=== PATIENT | male | born 1940 | race Caucasian/White ===

== ENCOUNTER → 2018-06-02 | Outpatient (CLI) | payer OTHER ==
[~2018-06-02] MED LIST: ALBU90OI6; GABA300; IBUP800 PO; OXYC10TA19 PO; RAMI2.5
== END | disposition home or self-care (01) ==
LOC: LAB EV 16:00 → LAB SHORT 16:00
DX: R30.0 Dysuria (principal)
CPT/HCPCS: 87086

== ENCOUNTER → 2019-04-26 | Outpatient (CLI) | payer OTHER | END | disposition home or self-care (01) | LOC: LAB EV 15:51 → LAB SHORT 15:51 | DX: N39.0 Urinary tract infection, site not specified (principal) | CPT/HCPCS: 87086 ==

== ENCOUNTER → 2020-02-07 | Outpatient (CLI) | payer OTHER | END | disposition home or self-care (01) | LOC: LAB SHORT 14:50 → LAB EV 14:50 | DX: R30.0 Dysuria (principal) | CPT/HCPCS: 87086 ==

== ENCOUNTER → 2020-04-03 | Outpatient (CLI) | payer OTHER | END | disposition home or self-care (01) | LOC: LAB EV 14:00 → LAB SHORT 14:00 | DX: R30.0 Dysuria (principal) | CPT/HCPCS: 87086 ==

== ENCOUNTER → 2020-05-16 | Outpatient (CLI) | payer OTHER | END | disposition home or self-care (01) | LOC: LAB EV 14:40 → LAB SHORT 14:40 | DX: R30.0 Dysuria (principal) | CPT/HCPCS: 87086 ==

== ENCOUNTER → 2020-08-07 | Outpatient (CLI) | payer OTHER ==
[~2020-08-07] MED LIST changes: +ALBU8HFA2 INH; +BUPROPION XL150 M1 PO; +FLUT1DIS5 INH; +FURO20 PO; +GABA800 PO; +IBUP600 PO; +TOUJEO SOL300 UNIT/2; +TRESIBA FL100 UNIT/2
== END | disposition home or self-care (01) ==
LOC: LAB SHORT 09:20 → LAB EV 09:20
DX: R35.0 Frequency of micturition (principal)
CPT/HCPCS: 87086

== ENCOUNTER → 2020-09-12 | Outpatient (CLI) | payer OTHER ==
[~2020-09-12] MED LIST changes: +ALBU90OI6 INH; +Narcan 0.40.4 MG/ML INH; +Oxycodone HCl20 M1 PO; +TOUJEO MAX300 UNIT/2
== END | disposition home or self-care (01) ==
LOC: LAB SHORT 13:40 → LAB EV 13:40
DX: N39.0 Urinary tract infection, site not specified (principal)
CPT/HCPCS: 87086

== ENCOUNTER 2020-09-13 10:16 | Day surgery (SDC) | payer OTHER ==
[~2020-09-13] VITALS: Ht 172.7 cm; Wt 96.1 kg
== END 2020-09-13 11:27 | disposition home or self-care (01) ==
LOC: ORSCSDS 10:16
PROVIDERS: Anesthesiology
PROC: 3E0R33Z Introduction of Anti-inflammatory into Spinal Canal, Percutaneous Approach (ICD-10-PCS; principal; 2020-09-13 11:15)
DX: M51.16 Intervertebral disc disorders with radiculopathy, lumbar region (principal); E11.9 Type 2 diabetes mellitus without complications; J44.9 Chronic obstructive pulmonary disease, unspecified; F17.210 Nicotine dependence, cigarettes, uncomplicated
CPT/HCPCS: 82947; J1040; J2001

== ENCOUNTER 2020-12-31 18:51 | Emergency (ER) | payer OTHER ==
[~2020-12-31] VITALS: Ht 170.2 cm; Wt 95.2 kg
== END 2020-12-31 21:20 | disposition left against medical advice (07) ==
LOC: ER 18:51
DX: E11.621 Type 2 diabetes mellitus with foot ulcer (principal); L97.419 Non-pressure chronic ulcer of right heel and midfoot with unspecified severity; Z53.21 Procedure and treatment not carried out due to patient leaving prior to being seen by health care provider
CPT/HCPCS: 99282

== ENCOUNTER 2021-01-08 00:28 | Day surgery (SDC) | payer OTHER | END 2021-01-08 23:59 | disposition home or self-care (01) | LOC: WOUND 00:28 | DX: E11.621 Type 2 diabetes mellitus with foot ulcer (principal); E11.622 Type 2 diabetes mellitus with other skin ulcer; E11.59 Type 2 diabetes mellitus with other circulatory complications; L89.322 Pressure ulcer of left buttock, stage 2; L89.312 Pressure ulcer of right buttock, stage 2 | CPT/HCPCS: A9270; G0463 ==

== ENCOUNTER 2021-01-17 22:56 | Emergency (ER) | payer OTHER ==
[~2021-01-17] VITALS: Ht 172.7 cm; Wt 66.2 kg
[2021-01-17] MEDS ORDERED: IBUP800 PO (23:31)
[2021-01-17 23:35] LABS: BASOPHILS ABSOLUTE AUTO 0.12 K/mm3 (0.00-0.23); BASOPHILS PERCENT AUTO 1 % (0-2); EOSINOPHILS ABSOLUTE AUTO 0.19 K/mm3 (0.00-0.68); EOSINOPHILS PERCENT AUTO 1 % (0-6); Hematocrit 31.9 % (37.0-53.0); Hemoglobin 10.3 g/dL (13.5-17.5); IMMATURE GRAN ABSOLUTE AUTO 0.77 K/mm3 (0.00-0.10); IMMATURE GRAN PERCENT AUTO 4 % (0-1); LYMPHOCYTES ABSOLUTE AUTO 2.55 K/mm3 (0.84-5.20); LYMPHOCYTES PERCENT AUTO 13 % (21-46); MONOCYTES ABSOLUTE AUTO 0.91 K/mm3 (0.16-1.47); MONOCYTES PERCENT AUTO 5 % (4-13); Mean Corpuscular HGB 30.8 pg (26.0-34.0); Mean Corpuscular HGB Conc 32.3 g/dL (31.5-36.5); Mean Corpuscular Volume 96 fL (80-100); Mean Platelet Volume 11.1 fL (9.1-12.4); NEUTROPHILS ABSOLUTE AUTO 14.93 K/mm3 (1.96-9.15); NEUTROPHILS PERCENT AUTO 77 % (41-73); Platelet Count 242 K/mm3 (150-400); RDW Coefficient Variation 13.3 % (11.7-14.2); RDW Standard Deviation 46.7 fL (35.1-46.3); Red Blood Cell Count 3.34 M/mm3 (4.30-5.90); White Blood Cell Count 19.47 K/mm3 (4.00-11.30)
[2021-01-17 23:50] LABS: Albumin, Blood 2.2 g/dL (3.4-5.0); Albumin/Globulin Ratio 0.8 (0.8-1.8); Bilirubin, Total 0.3 mg/dL (0.1-1.0); Bun/Creatinine Ratio 44.8 (12.0-20.0); Calcium, Blood 8.3 mg/dL (8.5-10.1); Creatinine, Blood 1.25 mg/dL (0.60-1.20); Globulin, Blood 2.8 g/dL (2.2-4.0); Potassium, Blood 4.6 mmol/L (3.5-5.5); Troponin I 0.056 ng/mL (0.000-0.040)
[2021-01-18 00:24] LABS: International Normalized Ratio 1.01; Prothrombin Time Results 10.8 Sec (9.7-11.5)
== END 2021-01-18 02:50 | disposition short-term general hospital (02) ==
LOC: ER 22:56
PROVIDERS: Emergency Medicine
DX: K92.2 Gastrointestinal hemorrhage, unspecified (principal); D50.0 Iron deficiency anemia secondary to blood loss (chronic); R79.89 Other specified abnormal findings of blood chemistry; I10 Essential (primary) hypertension; E78.5 Hyperlipidemia, unspecified; J44.9 Chronic obstructive pulmonary disease, unspecified; F17.210 Nicotine dependence, cigarettes, uncomplicated; Z88.1 Allergy status to other antibiotic agents; Z88.0 Allergy status to penicillin; Z88.6 Allergy status to analgesic agent; Z79.4 Long term (current) use of insulin
CPT/HCPCS: 36415; 71045; 80053; 84484; 85025; 85610; 85730; 86850; 86900; 86901; 93005; 93010; 96374; 99285-25; C9113

== ENCOUNTER → 2021-04-30 | Outpatient (CLI) | payer OTHER | END | disposition home or self-care (01) | LOC: LAB SHORT 13:52 → LAB 13:52 | DX: D11.0 Benign neoplasm of parotid gland (principal) | CPT/HCPCS: 88173 ==

== ENCOUNTER 2021-05-15 04:35 | Day surgery (SDC) | payer OTHER | END 2021-05-15 23:16 | disposition home or self-care (01) | LOC: WOUND 04:35 | DX: L97.212 Non-pressure chronic ulcer of right calf with fat layer exposed (principal); L97.222 Non-pressure chronic ulcer of left calf with fat layer exposed; L03.115 Cellulitis of right lower limb; L03.116 Cellulitis of left lower limb; E11.65 Type 2 diabetes mellitus with hyperglycemia; R60.0 Localized edema; I70.203 Unspecified atherosclerosis of native arteries of extremities, bilateral legs; R77.0 Abnormality of albumin; E11.40 Type 2 diabetes mellitus with diabetic neuropathy, unspecified; Z88.0 Allergy status to penicillin; Z88.1 Allergy status to other antibiotic agents; Z88.6 Allergy status to analgesic agent | CPT/HCPCS: A9270; G0463 ==

== ENCOUNTER → 2023-02-24 | Outpatient (CLI) | payer OTHER ==
[2023-02-24 12:30] LABS: BASOPHILS ABSOLUTE AUTO 0.12 K/mm3 (0.00-0.23); BASOPHILS PERCENT AUTO 2 % (0-2); EOSINOPHILS ABSOLUTE AUTO 0.35 K/mm3 (0.00-0.68); EOSINOPHILS PERCENT AUTO 4 % (0-6); Hematocrit 43.3 % (37.0-53.0); Hemoglobin 14.4 g/dL (13.5-17.5); IMMATURE GRAN ABSOLUTE AUTO 0.24 K/mm3 (0.00-0.10); IMMATURE GRAN PERCENT AUTO 3 % (0-1); LYMPHOCYTES ABSOLUTE AUTO 1.78 K/mm3 (0.84-5.20); LYMPHOCYTES PERCENT AUTO 22 % (21-46); MONOCYTES ABSOLUTE AUTO 1.06 K/mm3 (0.16-1.47); MONOCYTES PERCENT AUTO 13 % (4-13); Mean Corpuscular HGB 31.6 pg (26.0-34.0); Mean Corpuscular HGB Conc 33.3 g/dL (31.5-36.5); Mean Corpuscular Volume 95 fL (80-100); Mean Platelet Volume 11.3 fL (9.1-12.4); NEUTROPHILS ABSOLUTE AUTO 4.64 K/mm3 (1.96-9.15); NEUTROPHILS PERCENT AUTO 57 % (41-73); Platelet Count 218 K/mm3 (150-400); RDW Coefficient Variation 14.4 % (11.7-14.2); RDW Standard Deviation 49.8 fL (35.1-46.3); Red Blood Cell Count 4.55 M/mm3 (4.30-5.90); White Blood Cell Count 8.19 K/mm3 (4.00-11.30)
[2023-02-24 13:01] LABS: Albumin/Globulin Ratio 0.9 (0.8-1.8); Bilirubin, Total 0.3 mg/dL (0.1-1.0); Bun/Creatinine Ratio 15.1 (12.0-20.0); Calcium, Blood 8.5 mg/dL (8.5-10.1); Creatinine, Blood 1.06 mg/dL (0.60-1.20); Globulin, Blood 3.4 g/dL (2.2-4.0); Potassium, Blood 4.3 mmol/L (3.5-5.5); Total Protein, Blood 6.4 g/dL (6.4-8.2)
== END | disposition home or self-care (01) ==
LOC: LAB SHORT 11:05 → LAB HH 11:05
PROVIDERS: Nurse Practitioner Family
DX: E11.42 Type 2 diabetes mellitus with diabetic polyneuropathy (principal); E11.51 Type 2 diabetes mellitus with diabetic peripheral angiopathy without gangrene; E11.621 Type 2 diabetes mellitus with foot ulcer; L97.811 Non-pressure chronic ulcer of other part of right lower leg limited to breakdown of skin; I87.2 Venous insufficiency (chronic) (peripheral)
CPT/HCPCS: 80053; 83036; 85025

== ENCOUNTER 2024-03-25 00:12 | Emergency (ER) | payer OTHER ==
[~2024-03-25] VITALS: Ht 167.6 cm; Wt 95.2 kg
[2024-03-25] MEDS ORDERED: CefTRIAXone Sodium 1,000 MG in NS 50 ML IV ONE (03:55)
[2024-03-25 04:33] LABS: BASOPHILS ABSOLUTE AUTO 0.09 K/mm3 (0.00-0.23); BASOPHILS PERCENT AUTO 1 % (0-2); EOSINOPHILS ABSOLUTE AUTO 0.35 K/mm3 (0.00-0.68); EOSINOPHILS PERCENT AUTO 3 % (0-6); Hematocrit 42.9 % (37.0-53.0); Hemoglobin 14.1 g/dL (13.5-17.5); IMMATURE GRAN ABSOLUTE AUTO 0.11 K/mm3 (0.00-0.10); IMMATURE GRAN PERCENT AUTO 1 % (0-1); LYMPHOCYTES ABSOLUTE AUTO 1.71 K/mm3 (0.84-5.20); LYMPHOCYTES PERCENT AUTO 15 % (21-46); MONOCYTES ABSOLUTE AUTO 1.58 K/mm3 (0.16-1.47); MONOCYTES PERCENT AUTO 14 % (4-13); Mean Corpuscular HGB 32.6 pg (26.0-34.0); Mean Corpuscular HGB Conc 32.9 g/dL (31.5-36.5); Mean Corpuscular Volume 99 fL (80-100); Mean Platelet Volume 10.3 fL (9.1-12.4); NEUTROPHILS ABSOLUTE AUTO 7.89 K/mm3 (1.96-9.15); NEUTROPHILS PERCENT AUTO 67 % (41-73); Platelet Count 257 K/mm3 (150-400); RDW Coefficient Variation 13.6 % (11.7-14.2); RDW Standard Deviation 49.4 fL (35.1-46.3); Red Blood Cell Count 4.32 M/mm3 (4.30-5.90); White Blood Cell Count 11.73 K/mm3 (4.00-11.30)
[2024-03-25 04:54] LABS: Albumin, Blood 3.3 g/dL (3.4-5.0); Bilirubin, Total 0.4 mg/dL (0.1-1.0); Bun/Creatinine Ratio 23.8 (12.0-20.0); Calcium, Blood 9.3 mg/dL (8.5-10.1); Creatinine, Blood 0.93 mg/dL (0.60-1.20); Globulin, Blood 3.4 g/dL (2.2-4.0); Potassium, Blood 4.4 mmol/L (3.5-5.5); Total Protein, Blood 6.7 g/dL (6.4-8.2)
[2024-03-25] MEDS ORDERED: CEPH500 PO (04:59)
[2024-03-25 05:11] VITALS: BP 154/62
== END 2024-03-25 05:13 | disposition home or self-care (01) ==
LOC: ER 00:12
PROVIDERS: Emergency Medicine
DX: L03.115 Cellulitis of right lower limb (principal); I89.0 Lymphedema, not elsewhere classified; Z68.33 Body mass index [BMI] 33.0-33.9, adult; Z88.6 Allergy status to analgesic agent; Z88.1 Allergy status to other antibiotic agents; Z88.8 Allergy status to other drugs, medicaments and biological substances; Z88.0 Allergy status to penicillin; Z79.899 Other long term (current) drug therapy; Z79.4 Long term (current) use of insulin; E11.9 Type 2 diabetes mellitus without complications; I10 Essential (primary) hypertension; E78.5 Hyperlipidemia, unspecified; J44.9 Chronic obstructive pulmonary disease, unspecified; F17.210 Nicotine dependence, cigarettes, uncomplicated
CPT/HCPCS: 36415; 73590; 80053; 83605; 85025; 96365; 99283-25; J0696

== ENCOUNTER 2024-03-26 18:18 | Inpatient (IN) | payer OTHER ==
[~2024-03-26] VITALS: Ht 170.2 cm; Wt 98.6 kg
[~2024-03-26 18:18] MED LIST changes: +CEPH500 PO
[2024-03-26] MEDS ORDERED: Ondansetron HCl 2 MG / ML 2ML Vial IV PRN (19:55)
[2024-03-26] MEDS ORDERED: HYDROmorphone HCl/Pf 1MG SYR IV PRN ×2 (19:55→22:20)
[2024-03-26] MEDS ORDERED: Ipratropium/Albuterol SulF 2.5-0.5MG/3 ML Amp INH ONE (19:55)
[2024-03-26 20:36] LABS: Albumin, Blood 3.3 g/dL (3.4-5.0); Albumin/Globulin Ratio 0.9 (0.8-1.8); Bilirubin, Total 0.9 mg/dL (0.1-1.0); Bun/Creatinine Ratio 25.6 (12.0-20.0); Calcium, Blood 9.1 mg/dL (8.5-10.1); Creatinine, Blood 1.25 mg/dL (0.60-1.20); Globulin, Blood 3.6 g/dL (2.2-4.0); Potassium, Blood 4.9 mmol/L (3.5-5.5); Total Protein, Blood 6.9 g/dL (6.4-8.2)
[2024-03-26 20:53] LABS: BASOPHILS ABSOLUTE AUTO 0.11 K/mm3 (0.00-0.23); BASOPHILS PERCENT AUTO 1 % (0-2); EOSINOPHILS ABSOLUTE AUTO 0.13 K/mm3 (0.00-0.68); EOSINOPHILS PERCENT AUTO 1 % (0-6); Hematocrit 42.6 % (37.0-53.0); Hemoglobin 14.2 g/dL (13.5-17.5); IMMATURE GRAN ABSOLUTE AUTO 0.13 K/mm3 (0.00-0.10); IMMATURE GRAN PERCENT AUTO 1 % (0-1); LYMPHOCYTES ABSOLUTE AUTO 1.05 K/mm3 (0.84-5.20); LYMPHOCYTES PERCENT AUTO 8 % (21-46); MONOCYTES ABSOLUTE AUTO 1.55 K/mm3 (0.16-1.47); MONOCYTES PERCENT AUTO 11 % (4-13); Mean Corpuscular HGB 32.8 pg (26.0-34.0); Mean Corpuscular HGB Conc 33.3 g/dL (31.5-36.5); Mean Corpuscular Volume 98 fL (80-100); Mean Platelet Volume 10.7 fL (9.1-12.4); NEUTROPHILS ABSOLUTE AUTO 10.89 K/mm3 (1.96-9.15); NEUTROPHILS PERCENT AUTO 79 % (41-73); Platelet Count 232 K/mm3 (150-400); RDW Coefficient Variation 13.8 % (11.7-14.2); Red Blood Cell Count 4.33 M/mm3 (4.30-5.90); White Blood Cell Count 13.86 K/mm3 (4.00-11.30)
[2024-03-26 22:13] LABS: Source, Urine Foley catheter
[2024-03-26] MEDS ORDERED: Ondansetron 4 MG TAB PO PRN (22:20)
[2024-03-26] MEDS ORDERED: OxyCODONE HCL 5 MG TAB PO PRN (22:20)
[2024-03-26] MEDS ORDERED: Naloxone HCl 0.4MG / ML 1ML Vial IV PRN (22:20)
[2024-03-26] MEDS ORDERED: Acetaminophen 325 MG TABLET PO PRN (22:20)
[2024-03-26 22:26] LABS: Bilirubin, Urine Neg (Neg); Blood, Urine 4+ (Neg); Glucose Qualitative, Urine Neg (Neg); Ketones, Urine 1+ (Neg); Leukocyte Esterase, Urine Neg (Neg); Nitrite, Urine Neg (Neg); Protein, Urine 1+ (Neg); Urobilinogen, Urine NORM (Normal)
[2024-03-26 22:42] LABS: Appearance, Urine Hazy (Clear); Color, Urine Yellow (P-Yellow)
[2024-03-26 22:43] LABS: Bacteria Few /hpf; Squamous Epithelial Cells Few /hpf (Few); White Blood Cells, Urine 0-2 /hpf (0-5)
[2024-03-26] MEDS ORDERED: Mometasone/Formoterol MDI 200/5 mcg 13 GM INH SCH (22:45)
[2024-03-26 22:51] LABS: Influenza A, PCR NEGATIVE (NEGATIVE); Influenza B, PCR NEGATIVE (NEGATIVE); Resp Syncytial Virus, PCR NEGATIVE (NEGATIVE); SARS-Cov-2 (COVID-19) PCR, MMC NEGATIVE (NEGATIVE)
[2024-03-26] MEDS ORDERED: Lactated Ringer's 1,000 ML IV SCH (23:00)
[2024-03-26 23:31] VITALS: BP 153/57
--- NOTE | 2024-03-26 23:37 | NUR ---
ADMIT PT ARRIVED TO 212 @2315, 4P SLIDE TRANSFER TO BED. ADMITTED FOR L HIP FX. ORIENTED TO & CALL LIGHT.
[2024-03-27] MEDS ORDERED: Insulin Regular 100 UNIT/ML 10ML Vial SC SCH
[2024-03-27] MEDS ORDERED: CeFAZolin Sodium 1,000 MG in NS 50 ML IV SCH (00:16)
[2024-03-27] MEDS ORDERED: Albuterol 2.5 MG/3 ML VIAL INH PRN (00:35)
[2024-03-27] MEDS ORDERED: Ipratropium/Albuterol SulF 2.5-0.5MG/3 ML Amp INH SCH (00:35)
[2024-03-27 04:38] VITALS: BP 149/53
[2024-03-27 04:49] LABS: BASOPHILS ABSOLUTE AUTO 0.08 K/mm3 (0.00-0.23); BASOPHILS PERCENT AUTO 1 % (0-2); EOSINOPHILS ABSOLUTE AUTO 0.17 K/mm3 (0.00-0.68); EOSINOPHILS PERCENT AUTO 1 % (0-6); Hematocrit 40.8 % (37.0-53.0); Hemoglobin 13.3 g/dL (13.5-17.5); IMMATURE GRAN ABSOLUTE AUTO 0.12 K/mm3 (0.00-0.10); IMMATURE GRAN PERCENT AUTO 1 % (0-1); LYMPHOCYTES ABSOLUTE AUTO 1.17 K/mm3 (0.84-5.20); LYMPHOCYTES PERCENT AUTO 10 % (21-46); MONOCYTES ABSOLUTE AUTO 1.82 K/mm3 (0.16-1.47); MONOCYTES PERCENT AUTO 15 % (4-13); Mean Corpuscular HGB 32.5 pg (26.0-34.0); Mean Corpuscular HGB Conc 32.6 g/dL (31.5-36.5); Mean Corpuscular Volume 100 fL (80-100); Mean Platelet Volume 10.1 fL (9.1-12.4); NEUTROPHILS ABSOLUTE AUTO 8.93 K/mm3 (1.96-9.15); NEUTROPHILS PERCENT AUTO 73 % (41-73); Platelet Count 211 K/mm3 (150-400); RDW Coefficient Variation 13.8 % (11.7-14.2); Red Blood Cell Count 4.09 M/mm3 (4.30-5.90); White Blood Cell Count 12.29 K/mm3 (4.00-11.30)
[2024-03-27 05:17] LABS: Albumin, Blood 2.9 g/dL (3.4-5.0); Albumin/Globulin Ratio 0.9 (0.8-1.8); Bilirubin, Total 0.6 mg/dL (0.1-1.0); Bun/Creatinine Ratio 25.2 (12.0-20.0); Calcium, Blood 8.9 mg/dL (8.5-10.1); Creatinine, Blood 1.11 mg/dL (0.60-1.20); Globulin, Blood 3.4 g/dL (2.2-4.0); Magnesium, Blood 2.1 mg/dL (1.6-2.4); Potassium, Blood 4.3 mmol/L (3.5-5.5); Total Protein, Blood 6.3 g/dL (6.4-8.2)
--- NOTE | 2024-03-27 05:48 | NUR ---
SHIFT SUMMARY AOX2-SELF, FAMILY, PLACE. UNAWARE DATE, MONTH, PRESIDENT OR WHY HE'S IN HOSPITAL. FORGETFUL & CONFUSED. DAUGHTERS @BEDSIDE DURING ASSESSMENT & HELP W/QUESTIONS. PT DENIES ANY PAIN IN L HIP THIS AM, STATES MOST HIS PAIN IS IN RLE. R DESIR IS RED, HOT TO TOUCH, +1 EDEMA, SM NICKEL SIZE OPEN SORE NOTED. DAUGHTERS REPORT PT HAS BEEN DX PREVIOUSLY W/CELLULITIS & WAS TAKING PO ABX @HOME, PT RECIEVED IV ABX HERE & MEDICATED 1X W/0.5MG IV DILAUDID FOR 10/10 BURNING PAIN IN RLE. HAS BEEN NPO SINCE 0030 FOR POSSIBLE SURGERY TODAY, ATE SNACK PREVIOUS TO THAT SINCE CBG @84 & PT WOULD BE NPO. ORTHO CONSULT CALLED TO ANSWERING SERVICE. SPO2 @92% ON 2L 02, STATES HE HAS O2 @HOME HOWEVER WEARS IT INTERMITTENTLY. REST OF VS STABLE. HAS OCC MOIST PRODUCTIVE COUGH. BED ALARM & CALL LIGHT IN PLACE. WILL MONITOR.
--- NOTE | 2024-03-27 06:06 | NUR ---
COMMUNICATION *LATE ENTRY* DAUGHTERS INFORM THIS NURSE PT USED TO HAVE "PREVIOUS ISSUE" W/OXY & THEY HELPED "NIP THAT IN THE BUTT" & WOULD LIKE PT TO AVOID OR STAY AWAY FROM OXY, INFORMED THEM I WOULD PASS INFO ON. DAUGHTERS ALSO STATE PT DOESNT TAKE MANY OF HIS USUAL PERSCRIBED MEDICATION, DOESNT CHECK BLOOD SUGAR & EATS/DRINKS WHATEVER HE FEELS LIKE.
[2024-03-27 07:13] VITALS: BP 138/62
[2024-03-27] MEDS ORDERED: Furosemide 20 MG Tab PO SCH (09:00)
[2024-03-27] MEDS ORDERED: Docusate Sodium 100 MG Cap PO SCH (09:00)
[2024-03-27] MEDS ORDERED: Gabapentin 400 MG Cap PO SCH ×2 (09:00)
[2024-03-27] MEDS ORDERED: Polyethylene Glycol 3350 17 gm PO PRN (09:50)
[2024-03-27] MEDS ORDERED: Furosemide 10 MG/ML 4ML Vial IV SCH (10:00)
[2024-03-27] MEDS ORDERED: Cholecalciferol 1000 Unit Tablet (=25MCG) PO SCH (10:00)
[2024-03-27] MEDS ORDERED: Insulin Human Lispro 100 Units/ML 3ML Syringe SC SCH (11:30)
[2024-03-27 15:43] VITALS: BP 91/75
[2024-03-27 15:45] VITALS: BP 131/49
--- NOTE | 2024-03-27 17:26 | NUR ---
SHIFT SUMMARY PT RESTED INTERMITTENTLY T/O DAY. AAOX3. CONFUSED TO TIME/PLACE INTERMITTENTLY. DISCOMFORT DECREASED WITH 0.5MG IV DILAUDID PER ORDERS, DENIES N/V. TOLERATED DIET, ADA, AC+HS WITH NO INSULIN COVERAGE. LLE SHORTENED MILDLY EXTERNALLY ROTATED, DENIES N/T BLE, MOVES TOES WELL, PPP. IV ABX PER ORDERS. SURGERY PLANED FOR 0900 TOMORROW MORNING, NPO AFTER MIDNIGHT. FAMILY AT BEDSIDE T/O SHIFT, LOVING + ATTENTIVE. PT CURRENTLY SITTING UP IN BED TALKING WITH FAMILY, CALL LIGHT IN REACH.
[2024-03-27 20:10] VITALS: BP 149/63
[2024-03-27] MEDS ORDERED: Docusate Sodium/Senna 1 Tab PO SCH (21:00)
[2024-03-28 04:13] VITALS: BP 137/58
[2024-03-28 05:10] LABS: Hematocrit 38.1 % (37.0-53.0); Hemoglobin 12.3 g/dL (13.5-17.5); Mean Corpuscular HGB 32.1 pg (26.0-34.0); Mean Corpuscular HGB Conc 32.3 g/dL (31.5-36.5); Mean Corpuscular Volume 100 fL (80-100); Mean Platelet Volume 10.1 fL (9.1-12.4); Platelet Count 188 K/mm3 (150-400); RDW Coefficient Variation 13.8 % (11.7-14.2); RDW Standard Deviation 50.5 fL (35.1-46.3); Red Blood Cell Count 3.83 M/mm3 (4.30-5.90); White Blood Cell Count 10.93 K/mm3 (4.00-11.30)
--- NOTE | 2024-03-28 05:41 | NUR ---
SHIFT SUMMARY VSS. PT SLEPT WELL T/O THE NIGHT. MEDICATED FOR PAIN ONCE W/ IV PAIN MEDICATION. BLE REMAIN RED AND IRRITATED, RLE W/ OPEN CELLULITIS. BLE ELEVATED ON PILLOWS. COATES REMAINS IN PLACE, DRAINING YELLOW URINE. IV FLUIDS INFUSING. PT HAS BEEN NPO SINCE 0000 FOR SURGERY TODAY. OTHERWISE, NO ACUTE EVENTS NOTED.
[2024-03-28 05:43] LABS: Albumin, Blood 2.4 g/dL (3.4-5.0); Anion Gap 8 mmol/L (3-11); Blood Urea Nitrogen 32 mg/dL (8-24); Bun/Creatinine Ratio 28.6 (12.0-20.0); CO2, Blood 28 mmol/L (21-32); Calcium, Blood 8.6 mg/dL (8.5-10.1); Chloride, Blood 108 mmol/L (98-108); Creatinine, Blood 1.12 mg/dL (0.60-1.20); Glomerular Filtration Rate 66 (60-); Glucose, Blood 94 mg/dL (70-99); Magnesium, Blood 1.9 mg/dL (1.6-2.4); Phosphorus, Blood 3.3 mg/dL (2.5-4.9); Potassium, Blood 4.2 mmol/L (3.5-5.5); Sodium, Blood 140 mmol/L (136-145)
[2024-03-28 07:19] VITALS: BP 160/66
--- NOTE | 2024-03-28 15:23 | NUR ---
CALLED DR. BARKSDALE ABOUT ORDERS FOR TELLE. PT IS ON CONTINUOUS PULSE OX FOR PAIN MANAGEMENT. ASSESSED RADIAL PULSE, NOTICED IRREGULARITY. PT DENIES CHEST PAIN OR DISCOMFORT.
[2024-03-28 15:49] VITALS: BP 162/68
[2024-03-28] MEDS ORDERED: NS 250 ML IV PRN (16:35)
--- NOTE | 2024-03-28 18:09 | NUR ---
SHIFT SUMMARY HAS L HIP FX. PT IS ALERT X2-3. ORIENTATED TO SELF AND ANSWERS QUESTIONS APPROPRIATELY. PT HAS LIMITATIONS OF REMEMBERING HOW FALL OCCURED. PT VSS. Q2 TURNED PT. PT REPORTS PAIN IN BACK, L HIP AND R CALF. R CALF IS HOT TO TOUCH. MINIMAL PERLULENT DRAINAGE ON R CALF ON SHIFT. PAIN MANAGED PER EMAR, AND REPORTS RELIEF. PT RECIEVED ULTRASOUND TO RULE OUT DVT. PT IS ON 3L NC AND SOB. PLACED ON TELLE, SUSTAINED BIGEMINY SINCE PLACEMENT, DENIES CHEST PAIN. PT HAS COATES AND HAVING ADEQUATE OUTPUT. FAMILY AT BEDSIDE THROUGHOUT DAY. PLAN IS FOR PT TO HAVE SURGERY TOMORROW AND NPO AT MIDNIGHT. CALL LIGHT IN REACH.
[2024-03-28 19:36] VITALS: BP 164/40
[2024-03-29] VITALS (45 sets, daily range): BP systolic 84–148; BP diastolic 45–91
[2024-03-29] MEDS ORDERED: Insulin Human Lispro 100 Units/ML 3ML Syringe SC SCH
[2024-03-29 04:08] LABS: Hematocrit 38.9 % (37.0-53.0); Hemoglobin 12.5 g/dL (13.5-17.5); Mean Corpuscular HGB 32.1 pg (26.0-34.0); Mean Corpuscular HGB Conc 32.1 g/dL (31.5-36.5); Mean Corpuscular Volume 100 fL (80-100); Mean Platelet Volume 9.9 fL (9.1-12.4); Platelet Count 198 K/mm3 (150-400); RDW Coefficient Variation 13.8 % (11.7-14.2); RDW Standard Deviation 50.3 fL (35.1-46.3); White Blood Cell Count 11.64 K/mm3 (4.00-11.30)
[2024-03-29 04:31] LABS: Albumin, Blood 2.4 g/dL (3.4-5.0); Anion Gap 10 mmol/L (3-11); Blood Urea Nitrogen 35 mg/dL (8-24); Bun/Creatinine Ratio 31.5 (12.0-20.0); CO2, Blood 27 mmol/L (21-32); Calcium, Blood 8.7 mg/dL (8.5-10.1); Chloride, Blood 105 mmol/L (98-108); Creatinine, Blood 1.11 mg/dL (0.60-1.20); Glomerular Filtration Rate 66 (60-); Glucose, Blood 109 mg/dL (70-99); Phosphorus, Blood 3.3 mg/dL (2.5-4.9); Potassium, Blood 4.2 mmol/L (3.5-5.5); Sodium, Blood 138 mmol/L (136-145)
--- NOTE | 2024-03-29 06:44 | NUR ---
PT VSS T/O NIGHT. SATS >90% ON 3L O2 NC. LUNGS REMAIN DIM, WHEEZY AT TIMES, PT DENIED SOB. HR SINUS LOW 100'S W/PVC PER TELE MONITOR; PT DENIED CP/PRESSURE. L HIP PAIN MGD W/TYLENOL AND REPOSTIONING, RLE PAIN MGD W/ICE AND ELEVATION W/REP RELIEF. COATES PATANT DRNG DARK YELLOW URINE. PT NPO POST MIDNIGHT FOR PLAN FOR SURGERY TODAY. PT PLEASANTLY CONFUSED, BED ALARM ON FOR SAFETY.
[2024-03-29] MEDS ORDERED: FentaNYL Citrate 50 MCG/ML 2 ML Injection ONE ×3 (13:51→16:33)
[2024-03-29] MEDS ORDERED: Lactated Ringer's 1,000 ML IV SCH (14:05)
[2024-03-29] MEDS ORDERED: Ipratropium/Albuterol SulF 2.5-0.5MG/3 ML Amp INH ONE (14:15)
[2024-03-29] MEDS ORDERED: Ropivacaine 0.5% HCl/Pf 123.125 MG,EPINEPHrine HCL 0.25 MG,Clonidine HCl/Pf 40 MCG in N... INFIL SCH (14:20)
[2024-03-29] MEDS ORDERED: propofoL 20 ML IV ONE (14:21)
[2024-03-29] MEDS ORDERED: Ketamine HCl 100 MG / ML 5ML Vial ONE (14:21)
--- NOTE | 2024-03-29 14:32 | NUR ---
History, Chart, Medications and Allergies reviewed before start of procedure. Patient confirms NPO status and agrees with scheduled surgery. Pre-Op teaching done. Pt verbalizes understanding. DENTURES REMOVED BEFORE PT TRANSFERED TO [facility] AND PLACED IN DENTURE CUP, LEFT IN PT ROOM.
[2024-03-29] MEDS ORDERED: Tranexamic Acid 100 ML IV SCH (15:40)
[2024-03-29] MEDS ORDERED: Phenylephrine HCl 100 MCG/ML-NS 10MLSYR (1MG/10ML) ONE ×2 (15:47→17:19)
[2024-03-29] MEDS ORDERED: Ondansetron HCl 2 MG / ML 2ML Vial ONE (15:47)
[2024-03-29] MEDS ORDERED: Dexamethasone Sod Phos 10 MG/ML 1ML VIAL ONE (15:47)
[2024-03-29] MEDS ORDERED: Glycopyrrolate 0.2 MG/ML 5ML VIAL ONE (15:50)
[2024-03-29] MEDS ORDERED: Midazolam HCl 1MG / ML 2ML Vial ONE (16:15)
[2024-03-29] MEDS ORDERED: Metoprolol Tartrate 5 ML IV ONE (16:27)
--- NOTE | 2024-03-29 16:50 | NUR ---
PROVIDER CONTACT DR. GARNER CALLED AND NOTIFIED THAT THE PT WENT INTO SVT DURING HIS SX AND WILL BE COMING TO ICU 3 AFTER HE IS OUT OF SX ON A BON-SYNEPHRINE GTT.
--- NOTE | 2024-03-29 17:09 | NUR ---
03/29/24 1709 Davina Jamison PATIENT ARRIVED TO OR WITH COATES CATHETER IN PLACE DRAININ YELLOW URINE.
[2024-03-29] MEDS ORDERED: HYDROmorphone HCl/Pf 1MG SYR ONE (17:52)
[2024-03-29] MEDS ORDERED: Adenosine 3 MG/ML 2 ML Vial IV ONE (18:30)
[2024-03-29] MEDS ORDERED: EPINEPhrine HCl 0.1 MG/ML STE Water 10ML SYR IV ONE (18:30)
[2024-03-29] MEDS ORDERED: Phenylephrine HCl 20 MG in NS 250 ML IV SCH (18:35)
--- NOTE | 2024-03-29 19:34 | NUR ---
ARRIVED TO ICU PT ARRIVED TO ICU RM [address] GUTIERREZ AND HOLLY Schwartz RN AT THE BEDSIDE. PT DROWSY BUT VERY CONFUSED ATTEMPTING TO PULL OFF MONITOR LEADS AND EXIT THE BED. PT PLACED ON 6L NC FFOR SPO2 <89. PT'S MONITOR SHOWING SR 80'S-90'S ON ARRIVAL. PT'S BON-SYNEPHRINE PLACED ON STANDBY HOWEVER HE QUICKLY BECAME HYPOTENSIVE. BON-SYNEPHRINE RESTARTEAT 10 MCG/MIN. PT AFEBRILE ON ARRIVAL. EKG DONE PER DR. GUTIERREZ REQUEST. PT W AUQUACEL DRESSING INTACT ON L HIP. PT REPORTING MINOR/MODERATE PAIN IN LEFT HIP. PT'S LS NOTED TO HAVE WHEEZES THROUGHOUT LUNG MCNALLY, RT CONTACTED FOR BREATHING TX. PT CALMING DOWN HE AWOKE MORE FROM PREVIOUS SEDATION. PT'S FAMILY BROUGHT TO BEDSIDE. REPORT GIVEN TO IGNACIO CABRERA RN.
--- NOTE | 2024-03-29 22:00 | NUR ---
ASSUMPTION OF CARE: RECEIVED REPORT FROM JOHN AGUILAR. PT ALERT AND ORIENTED TO SELF. VERY CONFUSED, STATES THE YEAR IS 2004 AND HE HAS NO IDEA WHERE HE IS OR WHY HE IS HERE. FREQUENTLY REPEATS HIMSELF AND HAS TO BE REORIENTED. PT PULLING AT LINES AND DRESSINGS, CONTROL ANALYST AT THE BEDSIDE. PT ON 6L OXY MASK WITH SPO2 MID 90'S. DENIES SOB. LEAD CAREGIVER IN PLACE, SR WITH HR 60'S-80'S. DENIES CHEST PAIN/PRESSURE. SBP 120'S. MAP >65. BON SET TO SB AT 2138. PIVS PATENT AND SALINE LOCKED CURRENTLY. DRESSING TO LEFT HIP C/D/I. DRESSING TO LEFT ARM C/D/I. PT TOLERATING SIPS OF WATER. COATES IN PLACE, DRAINING TO GRAVITY YELLOW URINE. AT BEDSIDE AT START OF SHIFT, UPDATED TO PLAN OF CARE WITH PLANS TO RETURN IN THE MORNING. BED LOW AND LOCKED. BED ALARM ON FOR SAFETY.
[2024-03-30] VITALS (23 sets, daily range): BP systolic 103–141; BP diastolic 45–75
[2024-03-30] MEDS ORDERED: Nicotine 21 MG PATCH TOP ONE (03:55)
[2024-03-30] MEDS ORDERED: OxyCODONE HCL 5 MG TAB PO PRN (04:00)
--- NOTE | 2024-03-30 05:14 | NUR ---
SHIFT SUMMARY: PT UNABLE TO SLEEP THIS SHIFT. REPEATEDLY ASKED TO GO HOME AND ATTEMPTED TO REMOVE LINES AND BANDAGES. PT REMINDED THAT HE IS IN THE HOSPITAL. ABLE TO STATE HIS NAME. DOES NOT REMEMBER THE YEAR OR WHY/WHERE HE IS. FINNISH RUBBER AT THE BEDSIDE. PT C/O PAIN IN LEFT HIP, MEDICATED PER EMAR WITH SOME RELIEF. ATTEMPTED TO REPOSITION AND PT STATED IT MADE THE PAIN WORSE. PT CONTINUES ON 6L OXYMASK WITH SPO2 >90%> DENIES SOB. CONCRETE FLOATER IN PLACE, SR WITH HR 70'S. SBP STABLE WITH MAP >65. DENIES CHEST PAIN/PRESSURE. IVS INTACT AND SALINE LOCKED. DRESSING TO L HIP REMAINS C/D/I. DRESSING TO LEFT ARM C/D/I. PT HAS MULTIPLE BRUISES SCATTERED T/O. TOLERATING PO INTAKE WITH NO ISSUES. BED LOW AND LOCKED. COATES DRAINING YELLOW URINE TO GRAVITY. NO BM THIS SHIFT.
[2024-03-30 08:42] LABS: BASOPHILS ABSOLUTE AUTO 0.04 K/mm3 (0.00-0.23); BASOPHILS PERCENT AUTO 0 % (0-2); EOSINOPHILS PERCENT AUTO 0 % (0-6); Hematocrit 35.8 % (37.0-53.0); Hemoglobin 11.6 g/dL (13.5-17.5); IMMATURE GRAN PERCENT AUTO 1 % (0-1); LYMPHOCYTES ABSOLUTE AUTO 0.54 K/mm3 (0.84-5.20); LYMPHOCYTES PERCENT AUTO 4 % (21-46); MONOCYTES ABSOLUTE AUTO 1.38 K/mm3 (0.16-1.47); MONOCYTES PERCENT AUTO 9 % (4-13); Mean Corpuscular HGB Conc 32.4 g/dL (31.5-36.5); Mean Corpuscular Volume 99 fL (80-100); Mean Platelet Volume 10.3 fL (9.1-12.4); NEUTROPHILS PERCENT AUTO 86 % (41-73); Platelet Count 209 K/mm3 (150-400); RDW Coefficient Variation 13.5 % (11.7-14.2); RDW Standard Deviation 49.1 fL (35.1-46.3); Red Blood Cell Count 3.62 M/mm3 (4.30-5.90); White Blood Cell Count 15.06 K/mm3 (4.00-11.30)
[2024-03-30] MEDS ORDERED: Nicotine 21 MG PATCH TOP SCH (09:00)
--- NOTE | 2024-03-30 09:10 | NUR ---
INITIAL ASSESSMENT PATIENT RESTING QUIETLY IN BED UPON ENTERING ROOM. DAUGHTER AT BEDSIDE. PATIENT CALM, COOPERATIVE. PATIENT ORIENTED TO SELF, FAMILY, FOLLOWING COMMANDS AND HOSPITAL. PATIENT DISORIENTED TO YEAR AND MONTH AND FORGETFUL AT TIMES. PATIENT AFEBRILE. PATIENT STATES HE HAS SOME PAIN IN R LEG/ ANKLE BUT THAT THE PAIN IS MANAGEABLE AT THIS TIME. PATIENT SATTING 90% AND GREATER ON 6 L NC. LUNGS CLEAR IN UPPER LOBES AND DIMINISHED IN LOWER LOBES. PATIENT HAS OCCASIONAL WEAK COUGH. PATIENT IN SR WITH PACS. HR 80S TO 90S. SBP 120S TO 130S. GI WNL. COATES IN PLACE DRAINING YELLOW COLORED URINE. PATIENT HAS SCATTERED BRUISES AND SCABS T/O BODY HE FELL OUT OF HIS TRUCK PRIOR TO COMING TO HOSPITAL. R DESIR/ RLE RED AND WARM. DRESSING C/D/I TO L HIP; NOTED L HIP RED AND WARM. BED LOW, CALL LIGHT IN REACH. SITTER AT BEDSIDE PATIENT FORGETFUL AT TIMES AND PICKING AT DRESSINGS. CARE CONTINUES.
[2024-03-30 09:14] LABS: Bun/Creatinine Ratio 43.3 (12.0-20.0); Calcium, Blood 7.9 mg/dL (8.5-10.1); Creatinine, Blood 0.88 mg/dL (0.60-1.20); Potassium, Blood 4.7 mmol/L (3.5-5.5)
--- NOTE | 2024-03-30 12:05 | NUR ---
PATIENT AFEBRILE. PATIENT SATTING 90% AND GREATER ON 3 L NC. HR IN THE 80S. SBP IN THE 120S. BLOOD SUGAR 168. NO OTHER ACUTE CHANGES TO NOTE ON AT THIS TIME. DAUGHTER AT BEDSIDE. CARE CONTINUES.
--- NOTE | 2024-03-30 12:10 | NUR ---
DR. GARNER HERE TO SEE PATIENT. INFORMED THAT WBCS INCREASING. INFORMED THAT PATIENT FELT DIZZY THIS AM AND THAT WAS ON 6 L NC SATTING 95%. INFORMED THAT BP AND HR STABLE. INFORMED THAT TURNED O2 DOWN TO 3 L NC AND PATIENT REPORTED DIZZINESS GONE. INFORMED THAT NEOSYNEPHRINE TURNED OFF AT 2100 LAST NIGHT. INFORMED THAT PATIENT HAD SHORT RUN OF VTACH AND SVT THIS AM. INFORMED THAT L HIP RED AND WARM. INFORMED THAT PATIENT STOOD WITH PHYSICAL THERAPY. INFORMED THAT SCDS OVERLAPPING WOUND ON RLE. ORDERS RECEIVED. CARE CONTINUES.
[2024-03-30] MEDS ORDERED: Insulin Human Lispro 100 Units/ML 3ML Syringe SC SCH (16:30)
--- NOTE | 2024-03-30 16:35 | NUR ---
PATIENT AFEBRILE. HR IN THE 80S. SBP IN THE 120S. BLOOD SUGAR 143. BED LOW, CALL LIGHT IN REACH
--- NOTE | 2024-03-30 18:41 | NUR ---
SHIFT SUMMARY PATIENT REMAINED ALERT AND ORIENTED TO SELF, FAMILY, FOLLOWING DIRECTIONS AND HOSPITAL. PATIENT REMAINED DISORIENTED TO YEAR AND MONTH. PATIENT FORGETFUL AT TIMES AND WOULD ASK SAME QUESTIONS ONLY MINUTES AFTER ASKING THE SAME QUESTION. PATIENT REMAINED CALM, COOPERATIVE, PLEASANT AND JOKING WITH FAMILY AND STAFF. PATIENT REMAINED AFEBRILE. PATIENT GIVEN PRN OXYCODONE FOR COMPLAINTS OF CHRONIC PAIN AND L HIP PAIN. PATIENT ON 6 L OXYGEN THIS AM AND HAS BEEN SATTING 90% AND GREATER ON 3 L NC SINCE. PATIENT HAS REMAINED SR WITH PACS, HR 70S TO 90S. SBP LOW 100S TO 140S. PATIENT HAD SHORT RUN OF VTACH AND SVT THIS AM. PRN MIRALAX GIVEN; LAST BM ON THE 3RD. PATIENT HAS HAD OKAY APPETITE. COATES DRAINED 1525 MLS OF YELLOW COLORED URINE. COATES DC'D AT END OF SHIFT. NO CHANGES TO SKIN NOTED. WOUND CLEANSED AND DRESSINGS PLACED. PATIENT REPOSITIONED Q2H. PATIENT HAD COMPLETE BED BATH. BLOOD SUGARS 168 AND 143 THIS SHIFT. FAMILY AT BEDSIDE ALL DAY. PATIENT HAS NO COMPLAINTS AT THIS TIME. BED LOW, CALL LIGHT IN REACH. REPORT WILL BE GIVEN TO ASSUMING CATTLE RANCHER NURSE SHORTLY.
--- NOTE | 2024-03-30 19:20 | NUR ---
PATIENT SUCCESSFULLY TRANSFERRED TO SURGICAL FLOOR. FAMILY FOLLOWING BEHIND PATIENT. ALL BELONGINGS SENT WITH PATIENT.
--- NOTE | 2024-03-30 19:40 | NUR ---
ARRIVAL TO UNIT PT ARRIVED FROM ICU IN BED. TRANSFERRED OVER TO BED WITH SLIDING SHEET. PT ROLLED EASILY IWTH ASST, ALL EXTRA SHEETS OUT FROM UNDER PT. PT SOME REDNESS NEAR SURGICAL SITE, AQUACEL IN PLACE, C/D/I. PT HAS DRESSING ON L ARM, R ARM, AND R L LEG. PT ON 3L NC, RR EVEN AND UNLABORED. NO DISTRESS NOTED. PULSE TO FEET PALPABLE BILAT. CALL LIGHT GIVEN TO PATIENT, FAMILY AT BEDSIDE. NO OTHER CONCERNS AT THIS TIME, CALL LIGHT WITHIN REACH
[2024-03-30] MEDS ORDERED: Metoprolol Tartrate 25 MG Tab PO SCH (21:00)
[2024-03-31 03:57] VITALS: BP 150/58
--- NOTE | 2024-03-31 04:40 | NUR ---
SHIFT SUMMARY POD 2 L TOMY HIP PT ABLE TO SLEEP ON AND OFF T/O THE SHOFT. PAIN MANAGED PER EMAR. PT TOLERATING PO INTAKE, VOIDING SMALL AMOUNT AT A TIME. AQUACEL TO THE L HIP C/D/I. REDNESS TO THE HIP, DR PALACIOS AWARE.PT FORGETUL TONIGHT, EASILY REDIRECTABLE. VSS, NO OTHER CONCERNS AT THIS TIME, CALL LIGHT WITHIN REACH
[2024-03-31 05:17] LABS: BASOPHILS ABSOLUTE AUTO 0.03 K/mm3 (0.00-0.23); BASOPHILS PERCENT AUTO 0 % (0-2); EOSINOPHILS ABSOLUTE AUTO 0.02 K/mm3 (0.00-0.68); EOSINOPHILS PERCENT AUTO 0 % (0-6); Hematocrit 33.6 % (37.0-53.0); Hemoglobin 11.1 g/dL (13.5-17.5); IMMATURE GRAN ABSOLUTE AUTO 0.15 K/mm3 (0.00-0.10); IMMATURE GRAN PERCENT AUTO 1 % (0-1); LYMPHOCYTES ABSOLUTE AUTO 0.89 K/mm3 (0.84-5.20); LYMPHOCYTES PERCENT AUTO 7 % (21-46); MONOCYTES PERCENT AUTO 17 % (4-13); Mean Corpuscular HGB 32.6 pg (26.0-34.0); Mean Corpuscular Volume 99 fL (80-100); Mean Platelet Volume 10.5 fL (9.1-12.4); NEUTROPHILS ABSOLUTE AUTO 9.63 K/mm3 (1.96-9.15); NEUTROPHILS PERCENT AUTO 75 % (41-73); Platelet Count 215 K/mm3 (150-400); RDW Coefficient Variation 13.7 % (11.7-14.2); RDW Standard Deviation 48.8 fL (35.1-46.3); White Blood Cell Count 12.92 K/mm3 (4.00-11.30)
[2024-03-31 05:46] LABS: Calcium, Blood 8.5 mg/dL (8.5-10.1); Potassium, Blood 4.1 mmol/L (3.5-5.5)
[2024-03-31 07:22] VITALS: BP 116/85
[2024-03-31] MEDS ORDERED: Enoxaparin 40 MG/0.4 ML SYR SC SCH (09:00)
[2024-03-31 14:46] VITALS: BP 129/51
[2024-03-31] MEDS ORDERED: Tamsulosin HCl 0.4 MG Cap PO SCH (18:00)
--- NOTE | 2024-03-31 18:10 | NUR ---
SHIFT SUMMARY PATIENT ALERT AND INTERACTIVE. PATIENT REPEATEDLY ASKING WHEN HE CAN GO HOME THROUGHOUT THE SIFT. PATIENT CONTINUES TO HAVE PAIN IN BOTH HIPS. MEDICATED PER MAR FOR PAIN. PATIENT UP TO CHAIR FOR MOST OF SHIFT AND WORKED WITH PT/OT TODAY. PLAN FOR PATIENT TO GO TO REHAB FOR FURTHER RECOVERY. DAUGHTER AT BEDSIDE MOST OF THE DAY. PATIENT VOIDING FREQUENTLY SMALL AMOUNTS OF URINE. PLAN TO START FLOW MAX TO HELP WITH BLADDER EMPTYING. DAUGHTER CONTINUES TO VERBALIZE CONCERN OF REDNESS AT INCISION SITE. SURGEON VISUALIZED SITE. PATIENT CONTINUES ON ANTIBIOTICS AT THIS TIME.
[2024-03-31 19:05] VITALS: BP 109/40
--- NOTE | 2024-04-01 04:04 | NUR ---
SHIFT SUMMARY POD 3 L TOMY HIP PT ABLE TO REST DURING THE NIGHT. PAIN MANAGED PER EMAR. TOLERATING PO INTAKE, VOIDING. 2 PERS FWW AND GB WHEN TRANSFERRING. PLAN FOR D/C TO SNF. VSS NO OTHER CONCERNS AT THIS TIME, CALL LIGHT WITHIN REACH
[2024-04-01 04:45] VITALS: BP 131/50
[2024-04-01 07:28] VITALS: BP 121/49
[2024-04-01 07:29] VITALS: BP 122/48
[2024-04-01 07:30] VITALS: BP 126/45
[2024-04-01] MEDS ORDERED: Ibuprofen 400 MG Tab PO SCH (09:00)
[2024-04-01 15:05] VITALS: BP 116/45
--- NOTE | 2024-04-01 18:43 | NUR ---
SHIFT SUMMARY POD 3 L HIP, AQUACEL C/D/I. PT PLEASANTLY FORGETFUL, CONTINUES TO REQUEST TO GO HOME. WBAT, CELLULITIS TO R LOWER LEG W/ MEPILEX. MEPILEX TO COCCYX TO WOUND. KRYSTAL TO L ELBOW AREA, W/ SWELLING TO L LOWER ARM. PT/OT IN TO SEE PATIENT TODAY, BUT NO PHYSICAL THERAPY RECEIVED PER PT REPORTED WORE OUT. PT AMBULATED TO HALLWAY AND BATHROOM X2 THIS SHIFT W/ USE OF GB AND FWW, TOLERATED WELL. CONTINUOUS O2 IN PLACE, AND DURING ACTIVITY. FAMILY VERY INVOLVED W/ PT CARE AND ENCOURAGING. IV SL TO L HAND AND R AC, FOR ABX. PT UP TO RECLINER MOST OF THE DAY. USE OF URINAL W/ ASSISTANCE. CALL LIGHT W/IN REACH, WILL REPORT TO ONCOMING SHIFT.
[2024-04-01 19:20] VITALS: BP 105/52
--- NOTE | 2024-04-02 04:12 | NUR ---
SHIFT SUMMARY POD 4 L TOMY HIP PT ABLE TO REST T/O THE NIGHT. PAIN MANAGED PER EMAR. PT AMB WITH 1 PERS W/ FWW AND GB. TOLERATING PO INTAKE. VOIDING. PTS SATS STAYING ABOVE 92% ON 3L NC. AQUACEL TO L HIP C/D/I. VSS. NO OTHER CNONCERNS AT THIS TIME, CALL LIGHT WITHIN REACH
[2024-04-02 04:45] VITALS: BP 132/60
[2024-04-02 07:25] VITALS: BP 127/64
[2024-04-02] MEDS ORDERED: Gabapentin 100 MG Cap PO SCH (09:00)
[2024-04-02 14:37] VITALS: BP 122/52
[2024-04-02 16:26] LABS: SARS-Cov-2 (COVID-19) PCR, MMC NEGATIVE (NEGATIVE)
--- NOTE | 2024-04-02 16:34 | NUR ---
PT DOING WELL THIS SHIFT, UP WITH PT/OT W/ ENCOURAGEMENT FROM FAMILY. PT CONTINUES TO ASK WHERE IS AND WHEN HE GETS TO GO HOME. PLANS FOR DISCHARGE TO [facility] AT 1730 CLAY TRANSPORTER. PT ASSISTED TO BATHROOM, LG BM, WASHED UP AND DRESSED. COVID SCREENING NEGATIVE. IV'S REMOVED. AWAITING TRANSPORT NOW.
--- NOTE | 2024-04-02 17:33 | NUR ---
REPORT GIVEN TO DAVID AT [facility].
--- NOTE | 2024-04-02 18:00 | NUR ---
PT DISCHARGE TRANSPORT ARRIVED AND CORRECTION IN DROP [facility] LOCATION [facility]. ALL BELONGINGS SENT W/ DAUGHTER.
== END 2024-04-02 18:00 | DRG 521 ==
LOC: ER 18:18 → SURS 18:19 → ICUE 03-29 16:47 → SURS 03-30 19:40
PROVIDERS: Emergency Medicine; Internal Medicine; Orthopaedic Surgery Sports Medicine; ADMIT Student in an Organized Health Care Education/Training Program
PROC: 0SRS019 Replacement of Left Hip Joint, Femoral Surface with Metal Synthetic Substitute, Cemented, Open Approach (ICD-10-PCS; principal; 2024-03-29 14:30)
DX: S72.002A Fracture of unspecified part of neck of left femur, initial encounter for closed fracture (principal); J96.21 Acute and chronic respiratory failure with hypoxia; N17.9 Acute kidney failure, unspecified; L03.115 Cellulitis of right lower limb; I97.88 Other intraoperative complications of the circulatory system, not elsewhere classified; I47.10 Supraventricular tachycardia, unspecified; I95.9 Hypotension, unspecified; J44.9 Chronic obstructive pulmonary disease, unspecified; I12.9 Hypertensive chronic kidney disease with stage 1 through stage 4 chronic kidney disease, or unspecified chronic kidney disease; E11.22 Type 2 diabetes mellitus with diabetic chronic kidney disease; N18.9 Chronic kidney disease, unspecified; R35.0 Frequency of micturition; E78.5 Hyperlipidemia, unspecified; F17.210 Nicotine dependence, cigarettes, uncomplicated; R60.0 Localized edema; E66.9 Obesity, unspecified; R41.82 Altered mental status, unspecified; V58.4XXA Person boarding or alighting a pick-up truck or van injured in noncollision transport accident, initial encounter; Z79.899 Other long term (current) drug therapy; Z79.82 Long term (current) use of aspirin; Z79.51 Long term (current) use of inhaled steroids; Z79.4 Long term (current) use of insulin; Z68.32 Body mass index [BMI] 32.0-32.9, adult
CPT/HCPCS: 0241U; 36415; 51702; 71045; 72170; 73502; 80048; 80053; 80069; 81001; 82947; 83036; 83735; 83880; 85025; 85027; 85651; 86140; 93005; 93010; 93971; 94640; 94664; 94760; 94762; 96365; 96374-59; 96375; 96375-59; 96376; 97110; 97116; 97162; 97165; 97530; 97535; 99285-25; A9270; C1713; C1776; C8929; G0378; J0153; J0171; J0690; J0735; J1100; J1170; J1650; J1940; J2250; J2371; J2405; J2704; J2795; J3010; J7050; J7120; Q9957; U0002

== ENCOUNTER 2025-01-20 00:35 | Emergency (ER) | payer OTHER ==
[~2025-01-20] VITALS: Ht 170.2 cm; Wt 95.2 kg
[2025-01-20 02:54] LABS: BASOPHILS ABSOLUTE AUTO 0.08 K/mm3 (0.00-0.23); BASOPHILS PERCENT AUTO 1 % (0-2); EOSINOPHILS ABSOLUTE AUTO 0.37 K/mm3 (0.00-0.68); EOSINOPHILS PERCENT AUTO 5 % (0-6); Hematocrit 39.9 % (37.0-53.0); Hemoglobin 13.3 g/dL (13.5-17.5); IMMATURE GRAN ABSOLUTE AUTO 0.09 K/mm3 (0.00-0.10); IMMATURE GRAN PERCENT AUTO 1 % (0-1); LYMPHOCYTES ABSOLUTE AUTO 1.18 K/mm3 (0.84-5.20); LYMPHOCYTES PERCENT AUTO 14 % (21-46); MONOCYTES ABSOLUTE AUTO 1.12 K/mm3 (0.16-1.47); MONOCYTES PERCENT AUTO 14 % (4-13); Mean Corpuscular HGB 32.1 pg (26.0-34.0); Mean Corpuscular HGB Conc 33.3 g/dL (31.5-36.5); Mean Corpuscular Volume 96 fL (80-100); Mean Platelet Volume 10.4 fL (9.1-12.4); NEUTROPHILS ABSOLUTE AUTO 5.45 K/mm3 (1.96-9.15); NEUTROPHILS PERCENT AUTO 66 % (41-73); Platelet Count 229 K/mm3 (150-400); RDW Coefficient Variation 14.9 % (11.7-14.2); RDW Standard Deviation 53.4 fL (35.1-46.3); Red Blood Cell Count 4.14 M/mm3 (4.30-5.90); White Blood Cell Count 8.29 K/mm3 (4.00-11.30)
[2025-01-20 03:00] VITALS: BP 158/65
[2025-01-20 03:12] LABS: Albumin, Blood 3.1 g/dL (3.4-5.0); Albumin/Globulin Ratio 0.9 (0.8-1.8); Bilirubin, Total 0.4 mg/dL (0.1-1.0); Bun/Creatinine Ratio 18.3 (12.0-20.0); Calcium, Blood 8.9 mg/dL (8.5-10.1); Creatinine, Blood 1.15 mg/dL (0.60-1.20); Globulin, Blood 3.4 g/dL (2.2-4.0); Total Protein, Blood 6.5 g/dL (6.4-8.2)
[2025-01-20] MEDS ORDERED: Clindamycin 600mg in D5W 50 ML IV ONE (04:00)
[2025-01-20] MEDS ORDERED: Cleocin HCl150 MG PO (04:08)
== END 2025-01-20 05:04 | disposition home or self-care (01) ==
LOC: ER 00:35
PROVIDERS: Emergency Medicine
DX: L03.116 Cellulitis of left lower limb (principal); D64.9 Anemia, unspecified; I10 Essential (primary) hypertension; E11.9 Type 2 diabetes mellitus without complications; E78.5 Hyperlipidemia, unspecified; J44.9 Chronic obstructive pulmonary disease, unspecified; F17.210 Nicotine dependence, cigarettes, uncomplicated; Z79.51 Long term (current) use of inhaled steroids; Z79.899 Other long term (current) drug therapy; Z88.2 Allergy status to sulfonamides; Z88.1 Allergy status to other antibiotic agents; Z88.0 Allergy status to penicillin
CPT/HCPCS: 80053; 85025; 93971; 96365; 99284-25

== ENCOUNTER 2025-04-21 13:28 | Day surgery (SDC) | payer OTHER ==
[~2025-04-21 13:28] MED LIST changes: +Cleocin HCl150 MG PO
[2025-04-21] MEDS ORDERED: Lidocaine HCl 4% Cream 5 GM ONE (14:00)
== END 2025-04-21 23:00 | disposition home or self-care (01) ==
LOC: WOUND 13:28
DX: E11.621 Type 2 diabetes mellitus with foot ulcer (principal); L97.511 Non-pressure chronic ulcer of other part of right foot limited to breakdown of skin; E11.622 Type 2 diabetes mellitus with other skin ulcer; I87.312 Chronic venous hypertension (idiopathic) with ulcer of left lower extremity; L97.822 Non-pressure chronic ulcer of other part of left lower leg with fat layer exposed; I87.2 Venous insufficiency (chronic) (peripheral); E11.51 Type 2 diabetes mellitus with diabetic peripheral angiopathy without gangrene; I10 Essential (primary) hypertension; J44.9 Chronic obstructive pulmonary disease, unspecified; F17.210 Nicotine dependence, cigarettes, uncomplicated; Z88.0 Allergy status to penicillin; Z88.8 Allergy status to other drugs, medicaments and biological substances
CPT/HCPCS: A9270; G0463

== ENCOUNTER 2025-04-26 17:02 | Emergency (ER) | payer OTHER ==
[~2025-04-26] VITALS: Ht 170.2 cm; Wt 95.2 kg
[2025-04-26 17:13] VITALS: BP 145/54
[2025-04-26] MEDS ORDERED: Cleocin HCl150 MG PO (17:20)
== END 2025-04-26 17:22 | disposition home or self-care (01) ==
LOC: ER 17:02
DX: L03.116 Cellulitis of left lower limb (principal); Z88.8 Allergy status to other drugs, medicaments and biological substances; Z88.0 Allergy status to penicillin; Z79.2 Long term (current) use of antibiotics; Z79.899 Other long term (current) drug therapy; I10 Essential (primary) hypertension; E11.9 Type 2 diabetes mellitus without complications; J44.9 Chronic obstructive pulmonary disease, unspecified; E78.5 Hyperlipidemia, unspecified; F17.210 Nicotine dependence, cigarettes, uncomplicated
CPT/HCPCS: 99282

== ENCOUNTER 2025-11-17 21:17 | Emergency (ER) | payer OTHER ==
[~2025-11-17] VITALS: Ht 167.6 cm; Wt 93.0 kg
[2025-11-17 21:31] VITALS: BP 156/76
[2025-11-17 22:01] LABS: BASOPHILS ABSOLUTE AUTO 0.13 K/mm3 (0.00-0.23); BASOPHILS PERCENT AUTO 1 % (0-2); EOSINOPHILS ABSOLUTE AUTO 0.12 K/mm3 (0.00-0.68); EOSINOPHILS PERCENT AUTO 1 % (0-6); Hematocrit 43.2 % (37.0-53.0); Hemoglobin 13.7 g/dL (13.5-17.5); IMMATURE GRAN ABSOLUTE AUTO 0.09 K/mm3 (0.00-0.10); IMMATURE GRAN PERCENT AUTO 1 % (0-1); LYMPHOCYTES ABSOLUTE AUTO 1.26 K/mm3 (0.84-5.20); LYMPHOCYTES PERCENT AUTO 13 % (21-46); MONOCYTES ABSOLUTE AUTO 1.12 K/mm3 (0.16-1.47); MONOCYTES PERCENT AUTO 12 % (4-13); Mean Corpuscular HGB Conc 31.7 g/dL (31.5-36.5); Mean Corpuscular Volume 97 fL (80-100); NEUTROPHILS ABSOLUTE AUTO 6.83 K/mm3 (1.96-9.15); NEUTROPHILS PERCENT AUTO 72 % (41-73); NRBC ABSOLUTE 0.00 K/mm3 (0.00-0.02); NRBC Auto 0.0 /100 WBC (0.0-0.2); Platelet Count 272 K/mm3 (150-400); RDW Coefficient Variation 15.6 % (11.7-14.2); RDW Standard Deviation 55.5 fL (35.1-46.3)
[2025-11-17 22:18] LABS: Anion Gap 5.0 mmol/L (3-11); Blood Urea Nitrogen 27.0 mg/dL (8-24); C-REACTIVE PROTEIN, EXT RANGE 1.71 mg/dL (0.000-0.300); CO2, Blood 26.0 mmol/L (21-32); Calcium, Blood 8.8 mg/dL (8.5-10.1); Chloride, Blood 113.0 mmol/L (98-108); Creatinine, Blood 1.25 mg/dL (0.60-1.20); Glucose, Blood 112.0 mg/dL (70-99); Potassium, Blood 3.6 mmol/L (3.5-5.5); Sodium, Blood 140.0 mmol/L (136-145)
[2025-11-17] MEDS ORDERED: Clindamycin HC150 MG PO (23:47)
== END 2025-11-18 00:25 | disposition home or self-care (01) ==
LOC: ER 21:17
PROVIDERS: Emergency Medicine
DX: L03.116 Cellulitis of left lower limb (principal); R60.0 Localized edema; I10 Essential (primary) hypertension; E78.5 Hyperlipidemia, unspecified; J44.9 Chronic obstructive pulmonary disease, unspecified; F17.210 Nicotine dependence, cigarettes, uncomplicated; Z88.8 Allergy status to other drugs, medicaments and biological substances; Z88.1 Allergy status to other antibiotic agents; Z79.899 Other long term (current) drug therapy; Z88.0 Allergy status to penicillin
CPT/HCPCS: 73590; 80048; 83880; 85025; 85651; 86140; 93005; 93010; 93971; 99284-25; A9270

== ENCOUNTER 2025-11-20 07:37 | Emergency (ER) | payer OTHER ==
[~2025-11-20] VITALS: Ht 170.2 cm; Wt 99.8 kg
[~2025-11-20 07:37] MED LIST changes: +Clindamycin HC150 MG PO
[2025-11-20 08:14] VITALS: BP 145/72
[2025-11-20] MEDS ORDERED: CeFAZolin Sodium 2,000 MG in NS 100 ML IV ONE (08:25)
[2025-11-20 08:51] LABS: BASOPHILS ABSOLUTE AUTO 0.13 K/mm3 (0.00-0.23); BASOPHILS PERCENT AUTO 1 % (0-2); EOSINOPHILS ABSOLUTE AUTO 0.28 K/mm3 (0.00-0.68); EOSINOPHILS PERCENT AUTO 3 % (0-6); Hematocrit 44.0 % (37.0-53.0); Hemoglobin 14.1 g/dL (13.5-17.5); IMMATURE GRAN ABSOLUTE AUTO 0.10 K/mm3 (0.00-0.10); IMMATURE GRAN PERCENT AUTO 1 % (0-1); LYMPHOCYTES ABSOLUTE AUTO 2.12 K/mm3 (0.84-5.20); LYMPHOCYTES PERCENT AUTO 21 % (21-46); MONOCYTES ABSOLUTE AUTO 1.16 K/mm3 (0.16-1.47); MONOCYTES PERCENT AUTO 11 % (4-13); Mean Corpuscular HGB Conc 32.0 g/dL (31.5-36.5); Mean Corpuscular Volume 97 fL (80-100); NEUTROPHILS ABSOLUTE AUTO 6.39 K/mm3 (1.96-9.15); NEUTROPHILS PERCENT AUTO 63 % (41-73); NRBC ABSOLUTE 0.00 K/mm3 (0.00-0.02); NRBC Auto 0.0 /100 WBC (0.0-0.2); Platelet Count 278 K/mm3 (150-400); RDW Coefficient Variation 15.9 % (11.7-14.2); RDW Standard Deviation 55.7 fL (35.1-46.3)
[2025-11-20 09:11] LABS: Alanine Aminotransfer (ALT/SGP 16.0 U/L (12-78); Albumin, Blood 3.3 g/dL (3.4-5.0); Albumin/Globulin Ratio 0.9 (0.8-1.8); Anion Gap 7.0 mmol/L (3-11); Aspartate Aminotrans (AST/SGOT 18.0 U/L (12-37); Bilirubin, Total 0.5 mg/dL (0.1-1.0); Blood Urea Nitrogen 17.0 mg/dL (8-24); CO2, Blood 27.0 mmol/L (21-32); Calcium, Blood 9.0 mg/dL (8.5-10.1); Chloride, Blood 110.0 mmol/L (98-108); Creatinine, Blood 1.0 mg/dL (0.60-1.20); Globulin, Blood 3.8 g/dL (2.2-4.0); Glucose, Blood 112.0 mg/dL (70-99); Potassium, Blood 3.5 mmol/L (3.5-5.5); Sodium, Blood 140.0 mmol/L (136-145); Total Protein, Blood 7.1 g/dL (6.4-8.2)
[2025-11-20] MEDS ORDERED: Vibramycin100 MG PO (10:15)
[2025-11-20] MEDS ORDERED: Lasix20 MG PO (10:16)
== END 2025-11-20 10:40 | disposition home or self-care (01) ==
LOC: ER 07:37
PROVIDERS: Emergency Medicine
DX: L03.116 Cellulitis of left lower limb (principal); L03.115 Cellulitis of right lower limb; I87.8 Other specified disorders of veins; E11.9 Type 2 diabetes mellitus without complications; I10 Essential (primary) hypertension; E78.5 Hyperlipidemia, unspecified; J44.9 Chronic obstructive pulmonary disease, unspecified; F17.210 Nicotine dependence, cigarettes, uncomplicated; Z88.6 Allergy status to analgesic agent; Z88.1 Allergy status to other antibiotic agents; Z88.0 Allergy status to penicillin; Z79.899 Other long term (current) drug therapy
CPT/HCPCS: 80053; 83880; 85025; 86140; 96365; 99283-25; A9270; J0690